=== PATIENT | male | born 1985 | race Two or more races ===

== ENCOUNTER → 2020-04-30 | Outpatient (CLI) | payer MEDICARE, OTHER | END | disposition home or self-care (01) | LOC: MSC 17:00 | PROVIDERS: ATTEND Internal Medicine | DX: G25.0 Essential tremor (principal); I10 Essential (primary) hypertension; F90.9 Attention-deficit hyperactivity disorder, unspecified type; R63.5 Abnormal weight gain; F32.9 Major depressive disorder, single episode, unspecified; R00.2 Palpitations; I77.6 Arteritis, unspecified; Q82.1 Xeroderma pigmentosum; Z79.52 Long term (current) use of systemic steroids; Z79.899 Other long term (current) drug therapy ==

== ENCOUNTER → 2020-06-06 | Outpatient (CLI) | payer MEDICARE, OTHER | END | disposition home or self-care (01) | LOC: MSC 03-26 15:00 | PROVIDERS: ATTEND Internal Medicine | DX: G25.0 Essential tremor (principal); R63.5 Abnormal weight gain; F32.9 Major depressive disorder, single episode, unspecified; I10 Essential (primary) hypertension; Z94.0 Kidney transplant status; Z79.899 Other long term (current) drug therapy ==

== ENCOUNTER 2020-07-22 10:00 | Outpatient (CLI) | payer MEDICARE, OTHER | END 2020-07-22 23:59 | disposition home or self-care (01) | LOC: MSC 10:00 | PROVIDERS: ATTEND Internal Medicine | DX: Z09 Encounter for follow-up examination after completed treatment for conditions other than malignant neoplasm (principal); G25.0 Essential tremor; R63.5 Abnormal weight gain; Z94.0 Kidney transplant status; F32.9 Major depressive disorder, single episode, unspecified; I10 Essential (primary) hypertension; Q82.1 Xeroderma pigmentosum; Z79.52 Long term (current) use of systemic steroids; Z79.899 Other long term (current) drug therapy ==

== ENCOUNTER 2021-01-29 09:45 | Outpatient (CLI) | payer MEDICARE, OTHER | END 2021-01-29 23:59 | disposition home or self-care (01) | LOC: MSC 09:45 | PROVIDERS: ATTEND Internal Medicine | DX: Z51.89 Encounter for other specified aftercare (principal); Z94.0 Kidney transplant status; G25.0 Essential tremor; R63.5 Abnormal weight gain; F32.9 Major depressive disorder, single episode, unspecified; I10 Essential (primary) hypertension; R00.2 Palpitations; N52.9 Male erectile dysfunction, unspecified; F90.9 Attention-deficit hyperactivity disorder, unspecified type; Q82.1 Xeroderma pigmentosum; I77.6 Arteritis, unspecified; Z79.899 Other long term (current) drug therapy ==

== ENCOUNTER 2021-04-08 15:00 | Outpatient (CLI) | payer MEDICARE, OTHER | END 2021-04-08 23:59 | disposition home or self-care (01) | LOC: MSC 15:00 | PROVIDERS: ATTEND Internal Medicine | DX: I10 Essential (primary) hypertension (principal); Z94.0 Kidney transplant status; G25.0 Essential tremor; R63.5 Abnormal weight gain; F32.A Depression, unspecified; R00.2 Palpitations; N52.9 Male erectile dysfunction, unspecified; F90.9 Attention-deficit hyperactivity disorder, unspecified type; I77.6 Arteritis, unspecified; Q82.1 Xeroderma pigmentosum ==

== ENCOUNTER → 2021-07-15 | Outpatient (CLI) | payer MEDICARE, OTHER | END | disposition home or self-care (01) | LOC: MSC 14:00 | PROVIDERS: ATTEND Internal Medicine | DX: I12.0 Hypertensive chronic kidney disease with stage 5 chronic kidney disease or end stage renal disease (principal); N18.6 End stage renal disease; Z94.0 Kidney transplant status; G25.0 Essential tremor; R63.5 Abnormal weight gain; F32.A Depression, unspecified; R00.2 Palpitations; N52.9 Male erectile dysfunction, unspecified; F90.9 Attention-deficit hyperactivity disorder, unspecified type; I77.6 Arteritis, unspecified; Q82.1 Xeroderma pigmentosum ==

== ENCOUNTER → 2021-08-04 | Outpatient (CLI) | payer MEDICARE, OTHER | END | disposition home or self-care (01) | LOC: MSC 15:00 | PROVIDERS: ATTEND Internal Medicine | DX: I12.0 Hypertensive chronic kidney disease with stage 5 chronic kidney disease or end stage renal disease (principal); N18.6 End stage renal disease; Z94.0 Kidney transplant status; G25.0 Essential tremor; R63.5 Abnormal weight gain; F32.9 Major depressive disorder, single episode, unspecified; R00.2 Palpitations; F90.9 Attention-deficit hyperactivity disorder, unspecified type; I77.6 Arteritis, unspecified; Q82.1 Xeroderma pigmentosum ==

== ENCOUNTER 2022-08-05 14:00 | Outpatient (CLI) | payer MEDICARE, OTHER | END 2022-08-05 23:59 | disposition home or self-care (01) | LOC: MSC 14:00 | PROVIDERS: ATTEND Internal Medicine | DX: I12.0 Hypertensive chronic kidney disease with stage 5 chronic kidney disease or end stage renal disease (principal); N18.6 End stage renal disease; Z94.0 Kidney transplant status; G25.0 Essential tremor; R63.5 Abnormal weight gain; F32.9 Major depressive disorder, single episode, unspecified; R00.2 Palpitations; N52.9 Male erectile dysfunction, unspecified; F90.9 Attention-deficit hyperactivity disorder, unspecified type; I77.6 Arteritis, unspecified; Q82.1 Xeroderma pigmentosum ==

== ENCOUNTER 2022-12-10 15:15 | Outpatient (CLI) | payer MEDICARE, OTHER | END 2022-12-10 23:59 | disposition home or self-care (01) | LOC: MSC 15:15 | PROVIDERS: ATTEND Internal Medicine | DX: I12.0 Hypertensive chronic kidney disease with stage 5 chronic kidney disease or end stage renal disease (principal); N18.6 End stage renal disease; Z94.0 Kidney transplant status; G25.0 Essential tremor; R63.5 Abnormal weight gain; F32.9 Major depressive disorder, single episode, unspecified; R00.2 Palpitations; N52.9 Male erectile dysfunction, unspecified; F90.9 Attention-deficit hyperactivity disorder, unspecified type; I77.6 Arteritis, unspecified; Q82.1 Xeroderma pigmentosum ==

== ENCOUNTER → 2023-08-30 | Outpatient (CLI) | payer MEDICARE, OTHER | END | disposition home or self-care (01) | LOC: MSC 11:00 | PROVIDERS: ATTEND Internal Medicine | DX: I12.0 Hypertensive chronic kidney disease with stage 5 chronic kidney disease or end stage renal disease (principal); N18.6 End stage renal disease; Z94.0 Kidney transplant status; G25.0 Essential tremor; R63.5 Abnormal weight gain; F32.9 Major depressive disorder, single episode, unspecified; R00.2 Palpitations; N52.9 Male erectile dysfunction, unspecified; F90.9 Attention-deficit hyperactivity disorder, unspecified type; I77.6 Arteritis, unspecified; Q82.1 Xeroderma pigmentosum ==